=== PATIENT | female | born 1985 | race African-American/Black ===

== ENCOUNTER 2022-05-04 15:50 | Emergency (ER) | payer MEDICAID, SELFPAY ==
[2022-05-04 16:07] VITALS: BP 130/97; PULSE 65; RESP 18; TEMP 36.6; O2SAT 95; BMI 26.6
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
== END 2022-05-04 16:55 | disposition home or self-care (01) ==
PROVIDERS: Emergency Provider Emergency Medicine
DX: Z04.1 Encounter for examination and observation following transport accident (principal); V89.2XXA Person injured in unspecified motor-vehicle accident, traffic, initial encounter
CPT/HCPCS: 99281

== ENCOUNTER 2024-10-23 14:16 | Emergency (ER) | payer MEDICAID, SELFPAY ==
[2024-10-23 14:20] VITALS: BP 146/106; PULSE 93; RESP 18; TEMP 36.6; O2SAT 98; BMI 29.6
--- NOTE | 2024-10-23 14:51 | XRR_ITS ---
PROCEDURE INFORMATION: Exam: XR Right Ankle Exam date and time: 10/23/2024 3:09 PM Age: 38 years old Clinical indication: Injury or trauma; Patient HX: RT ankle pain/swelling after fall today TECHNIQUE: Imaging protocol: Radiologic exam of the right ankle. Views: 3 or more views. COMPARISON: No relevant prior studies available. FINDINGS: Bones/joints: Normal. Soft tissues: Normal. XR/XR ankle RT min 3V* [id number] IMPRESSION: No acute findings.
--- NOTE | 2024-10-23 15:23 | XRR_ITS ---
PROCEDURE INFORMATION: Exam: XR Right Foot Exam date and time: 10/23/2024 3:33 PM Age: 38 years old Clinical indication: Injury or trauma; Fall; Blunt trauma; Foot; Right; Additional info: Traumatic, foot pain TECHNIQUE: Imaging protocol: Radiologic exam of the right foot. Views: 3 or more views. COMPARISON: CR (LOW EXM, ) 10/23/2024 3:09 PM FINDINGS: Bones/joints: Normal. Soft tissues: 2 mm radiopaque foreign body along the plantar aspect of the 1st toe. XR/XR foot RT min 3V* [id number] IMPRESSION: 1. No acute osseous abnormalities. 2. 2 mm radiopaque foreign body just deep to the skin surface along the plantar aspect of the 1st toe.
--- NOTE | 2024-10-23 15:27 | ED_ITS ---
HPI - Extremity Problem General: Chief complaint: Extremity Injury, Lower Stated complaint: rt ankle injury Time Seen by Provider: 10/23/24 15:21 History of Present Illness: 38-year-old female who presents emergenc y room with right ankle pain after a fall about an hour ago. She is complaining of pain in her right lateral malleolus and on her medial proximal foot. She is not take any pain medications. No obvious deformities. She feels like there is a bump on the inside of her foot that is not on the other side that is painful. Neurovascularly intact. Difficulty walking because of pain. No other injuries. Related Data Previous Rx's Medication Instructions Recorded diclofenac sodium 50 mg 50 mg PO BID PRN pain #14 tabs 10/23/24 tablet,delayed release tramadol 50 mg tablet 50 mg PO Q8H PRN pain #20 tabs 10/23/24 Allergies Allergy/AdvReac Type Severity Reaction Status Date / Time No Known Allergies Allergy Verified 10/23/24 14:24 Review of Systems Narrative: Constitutional symptoms: Negative except as documented in HPI. Skin symptoms: Negative except as documented in HPI. Eye symptoms: Negative except as documented in HPI. ENMT symptoms: Negative except as documented in HPI. Respiratory symptoms: Negative except as documented in HPI. Cardiovascular symptoms: Negative except as documented in HPI. Gastrointestinal symptoms: Negative except as documented in HPI. Genitourinary symptoms: Negative except as documented in HPI. Musculoskeletal symptoms: Negative except as documented in HPI. Neurologic symptoms: Negative except as documented in HPI. Psychiatric symptoms: Negative except as documented in HPI. Endocrine symptoms: Negative except as documented in HPI. [facility] ED Female Reproductive History: Date of last menstrual period: 10/23/24 Physical Exam Narrative: EXAM NARRATIVE: General: Alert, no acute distress. Skin: warm and dry Head: Normocephalic Neck: Trachea midline Eye: Extraocular movements are intact. Ears, nose, mouth and throat: Oral mucosa moist Respiratory: Respirations are non-labored Musculoskeletal: Limitation of range of motion secondary to pain. Swelling of the lateral right malleolus. There is what appears to be some sort of bump on the medial proximal foot. Neurovascularly intact. Neurological: Alert and oriented, No focal neurological deficit observed. Psychiatric: Cooperative, appropriate mood & affect. Course Vital Signs: Vital signs: Vital Signs Temperature 97.9 F 10/23/24 14:20 Pulse Rate 93 01/04/25 14:20 Respiratory Rate 18 10/23/24 14:20 Blood Pressure 146/106 10/23/24 14:20 Pulse Oximetry 98 10/23/24 14:20 Oxygen Delivery Me thod Room Air 10/23/24 14:20 MDM - Extremity (Nontraumatic) Medical Decision Making X-ray of the right ankle: No fractures or dislocations. Some soft tissue swelling. This was reviewed and interpreted by myself the emergency room physician. I also reviewed the radiology report. X-ray of the right foot: No acute abnormalities. This was reviewed and interpreted by myself the emergency room physician. I also reviewed the radiology report. Assessment and plan: Ankle sprain ?Kaushik bandage and crutches in the emergency room. Crutch training. Home with diclofenac and Ultram. - Discharged home - Discussed plan with patient. Answered any questions. - Evaluation and treatment of this problem were appropriate in the emergency setting. Lab Data Radiology Impressions Ankle X-Ray 10/23/24 14:51 IMPRESSION: No acute findings. Foot X-Ray 10/23/24 15:23 IMPRESSION: 1. No acute osseous abnormalities. 2. 2 mm radiopaque foreign body just deep to the skin surface along the plantar aspect of the 1st toe. All radiology interpretation(s) finalized by discharge Discharge Plan Discharge Patient Disposition: Home Clinical Impression: Ankle sprain and strain Condition: Stable Prescriptions: New tramadol 50 mg tablet 50 mg PO Q8H PRN (Reason: pain) Qty: 20 0RF diclofenac sodium 50 mg tablet,delayed release (DR/EC) 50 mg PO BID PRN (Reason: pain) Qty: 14 0RF Discharge Orders: Discharge ED (Routine); Ordered 10/23/24 Ordered By: Yasmine Her Referrals: Marilu Leach MD [Physician] - 4-7 days (Please call for an appointment if pain in your ankle persists.) Discharge Diet: Usual diet Discharge Activity: Increase activity as tolerated Patient Instructions: Ankle Sprain (ED), Crutch Instructions (ED), Opioid Safety, Pain Management Activity Restrictions/Additional Instructions: Thank you for choosing [facility] for your healthcare needs today. Please realize this is an emergency room and that we are providing you with a medical screening exam and this may not be complete and all inclusive of all the testing and or work up that you may need to determine your ailment or severity of your illness. You have been screened and evaluated and felt safe for discharge. Health conditions do change or evolve sometimes and as such it is important that you follow up with your Primary Doctor to be re checked, 3-5 days is a general good time frame for follow up. You are always welcome to return to the ED for re assessment if your symptoms are worsening or you have new concerns Coding Level of Care Code ED Operations Support Specialist for Jaylene Reynolds
[2024-10-23 16:50] VITALS: PULSE 90; O2SAT 98
== END 2024-10-23 16:51 | disposition home or self-care (01) ==
PROVIDERS: Emergency Provider Emergency Medicine
DX: S93.401A Sprain of unspecified ligament of right ankle, initial encounter (principal); W19.XXXA Unspecified fall, initial encounter
CPT/HCPCS: 73610; 73630; 99283; E0114